=== PATIENT | male | born 1980 | race African-American/Black ===

== ENCOUNTER 2017-05-03 15:37 | Emergency (ER) | payer SELFPAY ==
[2017-05-03] MEDS ORDERED: METHYLPREDNISOLONE INJ 125 MG/2 ML SDV IV ONE (15:45)
[2017-05-03] MEDS ORDERED: FAMOTIDINE INJ/PF 20 MG/2 ML SDV IV ONE (15:45)
[2017-05-03] MEDS ORDERED: NORMAL SALINE 1000 ML 1,000 ML IV PRN (15:45)
[2017-05-03] MEDS ORDERED: EPINEPHRINE INJ/PF 1 MG/1 ML AMPULE SUBCUT ONE (15:46)
[2017-05-03] MEDS ORDERED: DIPHENHYDRAMINE HCL 50 MG/ML VIAL IV ONE (15:46)
[2017-05-03] MEDS ORDERED: METHYLPREDNISOLONE INJ 125 MG/2 ML SDV ONE (15:48)
--- NOTE | 2017-05-03 15:48 | ER Document Report ---
ED Medical Screen (RME) - General Chief Complaint: Allergic Reaction Stated Complaint: ALLERGIC REACTION/WASP STING Time Seen by Provider: 05/03/17 15:45 Mode of Arrival: Ambulatory Information source: Patient TRAVEL OUTSIDE OF THE [place] IN LAST 30 DAYS: No - HPI Patient complains to provider of: Patient to yellow wasp sting Onset: This afternoon Notes: 05/03/17 15:47 Patient is a 37-year-old male who presents to the emergency room for complaints of allergic reaction to yellow wasp sting, wasp sting occurred approximately 2 hours ago, he has developed facial swelling, difficulty swallowing with sensation of throat closing, no history of similar reaction previously - Related Data Allergies/Adverse Reactions: meperidine HCl [From Demerol] Allergy (Verified 05/03/17 15:41) Past Medical History - Past Medical History Cardiac Medical History: Reports: Hx Hypertension Pulmonary Medical History: Reports: Hx Asthma Renal/ Medical History: Denies: Hx Peritoneal Dialysis Past Surgical History: Reports: Hx Oral Surgery - Immunizations Immunizations up to date: Yes Hx Diphtheria, Pertussis, Tetanus Vaccination: Yes Physical Exam - Vital signs Vitals: Temp Pulse Resp BP Pulse Ox 99.4 F 110 H 20 179/116 H 100 05/03/17 15:41 05/03/17 15:41 05/03/17 15:41 05/03/17 15:41 05/03/17 15:41 Course - Vital Signs Vital signs: Temp Pulse Resp BP Pulse Ox 99.4 F 110 H 20 179/116 H 100 05/03/17 15:41 05/03/17 15:41 05/03/17 15:41 05/03/17 15:41 05/03/17 15:41
[2017-05-03] MEDS ORDERED: DIPHENHYDRAMINE HCL 50 MG/ML VIAL ONE (15:49)
[2017-05-03] MEDS ORDERED: EPINEPHRINE INJ/PF 1 MG/1 ML AMPULE IM ONE (15:50)
--- NOTE | 2017-05-03 15:51 | ER Document Report ---
ED Allergic Reaction - General Mode of Arrival: Ambulatory Information source: Patient TRAVEL OUTSIDE OF THE [place] IN LAST 30 DAYS: No - HPI Onset: This afternoon - Refer to HPI notes Swelling: Face Similar symptoms previously: No Recently seen / treated by doctor: No <KEVAN CORTES - Last Filed: 05/03/17 17:08> <NICKMARILU ANETA - Last Filed: 05/03/17 19:44> - General Chief Complaint: Allergic Reaction Stated Complaint: ALLERGIC REACTION/WASP STING Time Seen by Provider: 05/03/17 15:45 Notes: Patient is a 37 year old male presenting to the emergency department for an allergic reaction to a wasp sting. Patient states he was stung at 14:00 on his left upper extremity. Patient states he took 2 Benadryl and 2 Atarax. Patient complains of some facial swelling and difficulty swallowing. Patient denies any history of a previous reaction. Patient denies any difficulty taking deep breaths. Patient has a history of hypertension and is supposed to be taking lisinopril but states he has not been taking it. Patient states he had asthma as a child. Patient is allergic to meperidine HCl. (KEVAN CORTES) - Related Data Allergies/Adverse Reactions: meperidine HCl [From Demerol] Allergy (Verified 05/03/17 15:41) Past Medical History - General Information source: Patient - Social History Smoking Status: Never Smoker Cigarette use (# per day): No Chew tobacco use (# tins/day): No Smoking Education Provided: No Frequency of alcohol use: None Drug Abuse: None Family History: None Patient has suicidal ideation: No Patient has homicidal ideation: No - Past Medical History Cardiac Medical History: Reports: Hx Hypertension - lisinopril Pulmonary Medical History: Reports: Hx Asthma - as a child Past Surgical History: Reports: Hx Oral Surgery - Immunizations Immunizations up to date: Yes Hx Diphtheria, Pertussis, Tetanus Vaccination: Yes <KEVAN CORTES - Last Filed: 05/03/17 17:08> Review of Systems - Review of Systems Constitutional: No symptoms reported EENT: See HPI Cardiovascular: No symptoms reported Respiratory: No symptoms reported Gastrointestinal: No symptoms reported Genitourinary: No symptoms reported Male Genitourinary: No symptoms reported Musculoskeletal: See HPI Skin: See HPI Hematologic/Lymphatic: No symptoms reported Neurological/Psychological: No symptoms reported -: Yes All other systems reviewed and negative <KEVAN CORTES - Last Filed: 05/03/17 17:08> Physical Exam - Vital signs Interpretation: Hypertensive - General General appearance: Alert In distress: Mild - HEENT Head: Normocephalic, Atraumatic Eyes: Normal Pupils: PERRL Pharynx: Erythema - Erythema to the oropharynx <KEVAN CORTES - Last Filed: 05/03/17 17:08> - Vital signs Interpretation: Tachycardic - HEENT Eyes: Periorbital edema Pharynx: Uvular edema - Respiratory Respiratory status: No respiratory distress Chest status: Nontender Breath sounds: Normal Chest palpation: Normal - Cardiovascular Rhythm: Regular Heart sounds: Normal auscultation Murmur: No - Abdominal Inspection: Normal Distension: No distension Bowel sounds: Normal Tenderness: Nontender Organomegaly: No organomegaly - Back Back: Normal, Nontender - Extremities General upper extremity: Tender - Right medial elbow where envenomation was, Normal color, Normal ROM, Normal temperature General lower extremity: Nontender, Normal color, Normal ROM, Normal temperature , Normal weight bearing. No: Monique's sign - Neurological Neuro grossly intact: Yes Cognition: Normal Orientation: AAOx4 [place] Coma Scale Eye Opening: Spontaneous [place] Coma Scale Verbal: Oriented [place] Coma Scale Motor: Obeys Commands Carmen Coma Scale Total: 15 Speech: Normal Motor strength normal: LUE, RUE, LLE, RLE Sensory: Normal - Psychological Associated symptoms: Normal affect, Normal mood - Skin Skin Temperature: Warm Skin Moisture: Dry Character of irregularity: Urticarial - Diffuse <MARILU ROMERO - Last Filed: 05/03/17 19:44> - Vital signs Vitals: Temp Pulse Resp BP Pulse Ox 99.4 F 110 H 20 179/116 H 100 05/03/17 15:41 05/03/17 15:41 05/03/17 15:41 05/03/17 15:41 05/03/17 15:41 Course <KEVAN CORTES - Last Filed: 05/03/17 17:08> <MARILU ROMERO - Last Filed: 05/03/17 19:44> - Re-evaluation Re-evalutation: 05/03/17 17:06 Re-evaluated patient at this time. Patient states he feels better and his oropharynx is returning to baseline. All questions were answered. (KEVAN CORTES) 05/03/17 18:22 Patient improved at this time. no swelling of oropharynx. Urticaria is improved. No respiratory distress. Patient is not hypotensive. Patient has been on lisinopril in the past for high blood pressure. I do not think it is a good idea to refill his lisinopril currently with his recent anaphylaxis. Patient does not want to take that or really any other blood pressure medication anyway. He states that his blood pressure has been fine at home. Stable for discharge. Return if any worsening or concerning symptoms. Follow- up with PMD. (MARILU ROMERO) - Vital Signs Vital signs: Temp Pulse Resp BP Pulse Ox 99.4 F 110 H 22 H 160/105 H 98 05/03/17 15:41 05/03/17 15:41 05/03/17 18:05 05/03/17 18:05 05/03/17 18:05 Critical Care Note - Critical Care Note Total time excluding time spent on procedures (mins): 35 - Evaluation and management of anaphylaxis, potential airway compromise, multiple re-evaluations , counseling of patient <MARILU ROMERO - Last Filed: 05/03/17 19:44> Discharge <KEAVN CORTES - Last Filed: 05/03/17 17:08> <MARILU ROMERO - Last Filed: 05/03/17 19:44> - Discharge Clinical Impression: Wasp sting-induced anaphylaxis Qualifiers: Encounter type: initial encounter Injury intent: accidental or unintentional Qualified Code(s): T63.461A - Toxic effect of venom of wasps, accidental ( unintentional), initial encounter Condition: Stable Disposition: HOME, SELF-CARE Instructions: Swollen Insect Bite or Sting ([facility]), Acute Allergic Reaction ([facility]) Additional Instructions: Please take Claritin in the morning and Benadryl throughout the day as needed for itching. Please continue to take famotidine. Prescriptions: Epinephrine [Epipen 2-Ayad] 0.3 mg IM ONCE #1 ml Famotidine 20 mg PO BID #30 tablet Prednisone 40 mg PO DAILY #6 tablet Forms: Return to Work Scribe Attestation: 05/03/17 19:44 I personally performed the services described in the documentation, reviewed and edited the documentation which was dictated to the scribe in my presence, and it accurately records my words and actions. (MARILU ROMERO) Scribe Documentation - Scribe Written by Scribe:: Erika Reese 05/03/17 16:02 acting as scribe for :: Nick <KEVAN CORTES - Last Filed: 05/03/17 17:08>
[2017-05-03 18:15] VITALS: BP 160/105
== END 2017-05-03 18:30 | disposition home or self-care (01) ==
LOC: ER 15:37
DX: T63.461A Toxic effect of venom of wasps, accidental (unintentional), initial encounter (principal)
CPT/HCPCS: 99291; 96361; 96374; 96375; J1200; J0171; J2930; J7030; S0028

== ENCOUNTER 2018-05-08 03:42 | Emergency (ER) | payer SELFPAY ==
[2018-05-08 03:49] VITALS: BP 193/118
[2018-05-08] MEDS ORDERED: LOSARTAN POTASSIUM 50 MG TABLET PO ONE (04:12)
[2018-05-08] MEDS ORDERED: HYDROCHLOROTHIAZIDE 25 MG TABLET PO ONE (04:12)
--- NOTE | 2018-05-08 04:13 | ER Document Report ---
ED GI/ - General Chief Complaint: Nausea/Vomiting/Diarrhea Stated Complaint: NAUSEA Time Seen by Provider: 05/08/18 04:03 Notes: Patient is a 38-year-old male that comes emergency department for chief complaint of nausea, vomiting, diarrhea. Symptoms started 2 days ago, he states he vomited once, he has had about 20 episodes of diarrhea, nonbloody. He denies fever or chills. He tried taking Imodium and Pepto-Bismol without any improvement. He denies current nausea. No obvious sick contacts, no recent travel or antibiotics. Supposed to be on losartan 100 mg and HCTZ 25-50 mg daily but he is out of the medications and does not have any upcoming close follow-up at the moment. TRAVEL OUTSIDE OF THE [place] IN LAST 30 DAYS: No - Related Data Allergies/Adverse Reactions: meperidine HCl [From Demerol] Allergy (Verified 05/03/17 15:41) Past Medical History - General Information source: Patient - Social History Smoking Status: Never Smoker Drug Abuse: None Lives with: Alone Family History: None - Past Medical History Cardiac Medical History: Reports: Hx Hypertension - lisinopril Pulmonary Medical History: Reports: Hx Asthma - as a child Renal/ Medical History: Denies: Hx Peritoneal Dialysis Past Surgical History: Reports: Hx Oral Surgery - Immunizations Immunizations up to date: Yes Hx Diphtheria, Pertussis, Tetanus Vaccination: Yes Review of Systems - Review of Systems Constitutional: No symptoms reported EENT: No symptoms reported Cardiovascular: No symptoms reported Respiratory: No symptoms reported Gastrointestinal: See HPI Genitourinary: No symptoms reported Male Genitourinary: No symptoms reported Musculoskeletal: No symptoms reported Skin: No symptoms reported Hematologic/Lymphatic: No symptoms reported Neurological/Psychological: No symptoms reported Physical Exam - Vital signs Vitals: Temp Pulse Resp BP Pulse Ox 98.8 F 91 18 193/118 H 96 05/08/18 03:48 05/08/18 03:48 05/08/18 03:48 05/08/18 03:48 05/08/18 03:48 - Notes Notes: GENERAL: Alert, interacts well. No acute distress. HEAD: Normocephalic, atraumatic. EYES: Pupils equal, round, and reactive to light. Extraocular movements intact. ENT: Oral mucosa moist, tongue midline. NECK: Full range of motion. Supple. Trachea midline. LUNGS: Clear to auscultation bilaterally, no wheezes, rales, or rhonchi. No respiratory distress. HEART: Regular rate and rhythm. No murmur ABDOMEN: Soft, non-tender. Non-distended. Bowel sounds present in all 4 quadrants. EXTREMITIES: Moves all 4 extremities spontaneously. No edema, normal radial and dorsalis pedis pulses bilaterally. No cyanosis. BACK: no cervical, thoracic, lumbar midline tenderness. No saddle anesthesia, normal distal neurovascular exam. NEUROLOGICAL: Alert and oriented x3. Normal speech. [cranial nerves II through XII grossly intact]. PSYCH: Normal affect, normal mood. SKIN: Warm, dry, normal turgor. No rashes or lesions noted. Course - Re-evaluation Re-evalutation: CMP is unremarkable including electrolytes. No fever or tachycardia. Patient' s abdominal exam is benign with no guarding or tenderness at all. Patient able to provide diarrhea because of frequency of diarrhea. No white blood cells, negative C. difficile, stool culture and Gram stain pending. Suspect this is viral. Provided with symptom management, patient blood pressure is very elevated, he is out of his blood pressure medications, he denies headache, chest pain, or urinary retention, providing with refills, initial doses, patient has follow-up for this. Discussed workup, follow-up, return precautions , patient states understanding and agreement. - Vital Signs Vital signs: Temp Pulse Resp BP Pulse Ox 98.8 F 91 18 193/118 H 96 05/08/18 03:48 05/08/18 03:48 05/08/18 03:48 05/08/18 03:48 05/08/18 03:48 - Laboratory Result Diagrams: 05/08/18 04:18 Discharge - Discharge Clinical Impression: Nausea vomiting and diarrhea Condition: Stable Additional Instructions: Your examination including laboratory workup is most suggestive of viral cause of your symptoms. You have been provided with medications to take for the discomfort here, use only if needed, continue hydration, take the Phenergan if needed for nausea. This should resolve on its own with time. Follow-up with your primary provider for additional evaluation and management of your blood pressure. Return for any concerning or worsening symptoms including vomiting, severe abdominal pain, spiking fever, or any other concerning or worsening symptoms. Prescriptions: Hydrochlorothiazide [Hydrodiuril 25 mg Tablet] 25 mg PO QAM #30 tablet Losartan Potassium 100 mg PO DAILY #30 tablet Promethazine HCl [Phenergan 25 mg Tablet] 1 - 2 tab PO Q6H PRN #15 tablet PRN Reason: Forms: Return to Work, Elevated Blood Pressure
[2018-05-08 04:45] LABS: ALANINE AMINOTRANSFERASE 27 U/L (21-72); ALBUMIN 3.9 g/dL (3.5-5.0); ALKALINE PHOSPHATASE 70 U/L (38-126); ANION GAP 10 (5-19); ASPARTATE AMINO TRANSFERASE 19 U/L (17-59); BILIRUBIN,DIRECT 0.3 mg/dL (0.0-0.4); BILIRUBIN,TOTAL 0.4 mg/dL (0.2-1.3); BLOOD UREA NITROGEN 10 mg/dL (7-20); CALCIUM 9.6 mg/dL (8.4-10.2); CARBON DIOXIDE 27 mmol/L (22-30); CHLORIDE 107 mmol/L (98-107); GLUCOSE 99 mg/dL (75-110); POTASSIUM 3.6 mmol/L (3.6-5.0); TOTAL PROTEIN 6.6 g/dL (6.3-8.2)
[2018-05-08] MEDS ORDERED: HYDROCODONE/ACETAMINOPHEN 5-325 MG (6 TAB/ER DISP) PO PRN (06:24)
== END 2018-05-08 06:40 | disposition home or self-care (01) ==
LOC: ER 03:42
DX: R11.2 Nausea with vomiting, unspecified (principal); R19.7 Diarrhea, unspecified; I10 Essential (primary) hypertension; T46.5X6A Underdosing of other antihypertensive drugs, initial encounter; T50.2X6A Underdosing of carbonic-anhydrase inhibitors, benzothiadiazides and other diuretics, initial encounter; Z91.128 Patient's intentional underdosing of medication regimen for other reason; Z88.5 Allergy status to narcotic agent
CPT/HCPCS: 36415; 80053; 87045; 87205; 87493; 89055; 99284

== ENCOUNTER 2018-10-11 09:55 | Emergency (ER) | payer SELFPAY ==
[2018-10-11 10:02] VITALS: BP 193/120
--- NOTE | 2018-10-11 10:15 | ER Document Report ---
ED ENT - General Mode of Arrival: Ambulatory Information source: Patient TRAVEL OUTSIDE OF THE [place] IN LAST 30 DAYS: No - General Chief Complaint: Drainage from Ear Stated Complaint: LEFT EAR PAIN Time Seen by Provider: 10/11/18 10:08 Notes: 38-year-old male who presents to the emergency department today with complaints of "eardrum rupture". Patient states that last night at around 2000 he had a slight earache on the left side, he took NyQuil and went to sleep. Patient states this morning around 0600 he had a pain in his left ear and noticed some drainage coming out of it. Patient states he had a similar episode in 2007 which was a ruptured eardrum at that time. Patient denies any trauma to the ear , Q-tip usage, nasal congestion, or throat pain. 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 (BENJA RUSSELL) - Related Data Allergies/Adverse Reactions: meperidine HCl [From Demerol] Allergy (Verified 05/03/17 15:41) Past Medical History - General Information source: Patient - Social History Smoking Status: Current Every Day Smoker Cigarette use (# per day): Yes Chew tobacco use (# tins/day): No Frequency of alcohol use: Occasional Drug Abuse: None Family History: None Patient has suicidal ideation: No Patient has homicidal ideation: No - Past Medical History Cardiac Medical History: Reports: Hx Hypertension - lisinopril Pulmonary Medical History: Reports: Hx Asthma - as a child Renal/ Medical History: Denies: Hx Peritoneal Dialysis Past Surgical History: Reports: Hx Oral Surgery - Immunizations Immunizations up to date: Yes Hx Diphtheria, Pertussis, Tetanus Vaccination: Yes Review of Systems - Review of Systems Constitutional: No symptoms reported EENT: See HPI, Other - left ear pain, possible TM rupture. denies: Nose congestion, Throat pain Cardiovascular: No symptoms reported Respiratory: No symptoms reported Gastrointestinal: No symptoms reported Genitourinary: No symptoms reported Male Genitourinary: No symptoms reported Musculoskeletal: No symptoms reported Skin: No symptoms reported Hematologic/Lymphatic: No symptoms reported Neurological/Psychological: No symptoms reported -: Yes All other systems reviewed and negative Physical Exam - Vital signs Vitals: Temp Pulse Resp BP Pulse Ox 99.8 F 98 16 193/120 H 100 10/11/18 10:00 10/11/18 10:00 10/11/18 10:00 10/11/18 10:00 10/11/18 10:00 - Notes Notes: PHYSICAL EXAM GENERAL: Alert, interacts well. No acute distress. HEAD: Normocephalic, atraumatic. EYES: Pupils equal, round, and reactive to light. Extraocular movements intact. ENT: Oral mucosa moist, tongue midline. Right TM is normal in appearance. Left TM has large rupture, trace discharge, no blood, no erythema of the external auditory canal. NECK: Full range of motion. Supple. Trachea midline. LUNGS: Clear to auscultation bilaterally, no wheezes, rales, or rhonchi. No respiratory distress. HEART: Regular rate and rhythm. No murmurs, gallops, or rubs. EXTREMITIES: Moves all 4 extremities spontaneously. NEUROLOGICAL: Alert and oriented x3. Normal speech. PSYCH: Normal affect, normal mood. SKIN: Warm, dry, normal turgor. No rashes or lesions noted. (BENJA RUSSELL) Course - Re-evaluation Re-evalutation: 10/11/18 11:29 Ruptured TM presumably from otitis media although there is no purulent drainage at this time, patient given ciprofloxacin eyedrops. Prescription written as well. Discharged home. (ANA RODRIGUEZ) - Vital Signs Vital signs: Temp Pulse Resp BP Pulse Ox 99.8 F 98 16 193/120 H 100 10/11/18 10:00 10/11/18 10:00 10/11/18 10:00 10/11/18 10:00 10/11/18 10:00 Discharge - Discharge Clinical Impression: Otitis media with rupture of tympanic membrane Qualifiers: Laterality: left Qualified Code(s): H66.92 - Otitis media, unspecified, left ear Condition: Stable Disposition: HOME, SELF-CARE Additional Instructions: Your eardrum is ruptured. This likely came from an infection. Do not wet your ears in any way. When showering or bathing you should put in clean earplugs or a cotton ball to keep them dry. You should place 4 drops into your left ear 3 times a day for the next 7 days. Please return should your pain worsen, you become dizzy, you develop fevers or you have any new or concerning symptoms. Please follow-up with an ear nose and throat doctor in about 2 weeks to have your ear recheck to make sure it is healed. Prescriptions: Ciprofloxacin HCl/Dexameth [Ciprodex Otic Suspension 7.5 ml Bottle] 4 drop TID #1 bottle Referrals: MARINO SKINNER MD [ACTIVE STAFF] - Follow up as needed Scribe Attestation: 10/11/18 11:30 I personally performed the services described in the documentation, reviewed and edited the documentation which was dictated to the scribe in my presence, and it accurately records my words and actions. (ANA RODRIGUEZ) Scribe Documentation - Scribe Written by Graciee:: Erika Wei, 10/11/2018 1100 acting as scribe for :: Liyah
[2018-10-11] MEDS ORDERED: CIPROFLOXACIN HCL 0.3% OPH SOLN 2.5 ML OD ONE (10:17)
== END 2018-10-11 10:26 | disposition home or self-care (01) ==
LOC: ER 09:55
DX: H66.92 Otitis media, unspecified, left ear (principal); H92.12 Otorrhea, left ear; H92.02 Otalgia, left ear; F17.210 Nicotine dependence, cigarettes, uncomplicated; I10 Essential (primary) hypertension; J45.909 Unspecified asthma, uncomplicated; Z79.899 Other long term (current) drug therapy
CPT/HCPCS: 99282; J3490

== ENCOUNTER 2019-12-22 15:51 | Emergency (ER) | payer SELFPAY ==
[2019-12-22] MEDS ORDERED: HYDROCHLOROTHIAZIDE 25 MG TABLET PO ONE (16:40)
[2019-12-22] MEDS ORDERED: LOSARTAN POTASSIUM 50 MG TABLET PO ONE (16:40)
[2019-12-22] MEDS ORDERED: CLONIDINE HCL 0.2 MG TABLET PO ONE (16:40)
--- NOTE | 2019-12-22 16:46 | ER Document Report ---
ED Medical Screen (RME) - General Chief Complaint: Flu Symptoms Stated Complaint: FLU SYMPTOMS Time Seen by Provider: 12/22/19 16:34 Mode of Arrival: Ambulatory Information source: Patient Notes: 39-year-old male presented to ED for flulike symptoms. When he was here his blood pressure was 230/128. He states he has not had any of his blood pressure medicine in 6 months. He is on losartan 100 mg and hydrochlorothiazide 25 mg. I have talked with Dr. sandhu who is come and talk with the patient. He stated to give the patient 0.2 mg of clonidine, losartan 100 mg, and hydrochlorothiazide 25 mg p.o. now and he can will come reassess the patient and discharge him. He also stated to get the flu test. The flu test has been completed and is being sent to the lab. I have greeted and performed a rapid initial assessment of this patient. A comprehensive ED assessment and evaluation of the patient, analysis of test results and completion of medical decision making process will be conducted by an additional ED providers. TRAVEL OUTSIDE OF THE [place] IN LAST 30 DAYS: No - Related Data Allergies/Adverse Reactions: meperidine HCl [From Demerol] Allergy (Verified 05/03/17 15:41) yellow jackets Allergy (Uncoded 12/22/19 16:34) Past Medical History - Social History Frequency of alcohol use: Social Drug Abuse: None - Past Medical History Cardiac Medical History: Reports: Hx Hypertension - lisinopril Pulmonary Medical History: Reports: Hx Asthma - as a child Renal/ Medical History: Denies: Hx Peritoneal Dialysis Past Surgical History: Reports: Hx Oral Surgery - Immunizations Immunizations up to date: Yes Hx Diphtheria, Pertussis, Tetanus Vaccination: Yes Physical Exam - Vital signs Vitals: Temp Pulse Resp BP Pulse Ox 98.6 F 86 16 214/128 H 97 12/22/19 16:28 12/22/19 16:28 12/22/19 16:28 12/22/19 16:28 12/22/19 16:28 Course - Vital Signs Vital signs: Temp Pulse Resp BP Pulse Ox 98.6 F 86 16 220/128 H 97 12/22/19 16:28 12/22/19 16:28 12/22/19 16:28 12/22/19 16:43 12/22/19 16:28
[2019-12-22 17:32] LABS: A TYPE INFLUENZA AG NEGATIVE (NEGATIVE); B INFLUENZA AG NEGATIVE (NEGATIVE)
--- NOTE | 2019-12-22 17:40 | ER Document Report ---
ED General - General Chief Complaint: Flu Symptoms Stated Complaint: FLU SYMPTOMS Time Seen by Provider: 12/22/19 16:34 Mode of Arrival: Ambulatory TRAVEL OUTSIDE OF THE [place] IN LAST 30 DAYS: No - HPI Onset: Just prior to arrival Onset/Duration: Sudden, Persistent Quality of pain: No pain Severity: None Pain Level: Denies Associated symptoms: Headache Exacerbated by: Denies Similar symptoms previously: Yes Recently seen / treated by doctor: Yes - Related Data Allergies/Adverse Reactions: meperidine HCl [From Demerol] Allergy (Verified 05/03/17 15:41) yellow jackets Allergy (Uncoded 12/22/19 16:34) Past Medical History - General Information source: Patient - Social History Smoking Status: Current Every Day Smoker Cigarette use (# per day): Yes Chew tobacco use (# tins/day): No Smoking Education Provided: Yes Frequency of alcohol use: Social Drug Abuse: None Lives with: Alone Family History: None Patient has suicidal ideation: No Patient has homicidal ideation: No - Past Medical History Cardiac Medical History: Reports: Hx Hypertension - lisinopril Pulmonary Medical History: Reports: Hx Asthma - as a child Renal/ Medical History: Denies: Hx Peritoneal Dialysis Past Surgical History: Reports: Hx Oral Surgery - Immunizations Immunizations up to date: Yes Hx Diphtheria, Pertussis, Tetanus Vaccination: Yes Review of Systems - Review of Systems Constitutional: No symptoms reported EENT: No symptoms reported, Sinus pressure, Other - Rhinorrhea Cardiovascular: No symptoms reported Respiratory: No symptoms reported Gastrointestinal: No symptoms reported Genitourinary: No symptoms reported Male Genitourinary: No symptoms reported Musculoskeletal: No symptoms reported Skin: No symptoms reported Hematologic/Lymphatic: No symptoms reported Neurological/Psychological: No symptoms reported Physical Exam - Vital signs Vitals: Temp Pulse Resp BP Pulse Ox 98.6 F 86 16 214/128 H 97 12/22/19 16:28 12/22/19 16:28 12/22/19 16:28 12/22/19 16:28 12/22/19 16:28 Interpretation: Hypertensive - HEENT Head: Normocephalic Eyes: Normal Conjunctiva: Normal Cornea: Normal Extraocular movements intact: Yes Eyelashes: Normal Pupils: PERRL Ears: Normal Tympanic membrane: Normal Sinus: Other - Nasal congestion Nasal: Clear rhinorrhea Pharynx: Normal Neck: Normal - Respiratory Respiratory status: No respiratory distress Chest status: Nontender Breath sounds: Normal Chest palpation: Normal - Cardiovascular Rhythm: Regular Heart sounds: Normal auscultation Murmur: No Friction rub: No Johnathon's crunch: No - Abdominal Inspection: Normal Distension: No distension Bowel sounds: Normal Tenderness: Nontender Organomegaly: No organomegaly - Back Back: Normal - Extremities General upper extremity: Normal inspection General lower extremity: Normal inspection - Neurological Neuro grossly intact: Yes Cognition: Normal Orientation: AAOx4 [place] Coma Scale Eye Opening: Spontaneous [place] Coma Scale Verbal: Oriented [place] Coma Scale Motor: Obeys Commands [place] Coma Scale Total: 15 Speech: Normal Cranial nerves: Normal Course - Vital Signs Vital signs: Temp Pulse Resp BP Pulse Ox 98.6 F 86 16 220/128 H 97 12/22/19 16:28 12/22/19 16:28 12/22/19 16:28 12/22/19 16:43 12/22/19 16:28 Critical Care Note - Critical Care Note Total time excluding time spent on procedures (mins): 90 Discharge - Discharge Clinical Impression: Influenza-like illness, Medication refill Hypertension Qualifiers: Hypertension type: unspecified Qualified Code(s): I10 - Essential (primary) hypertension Disposition: HOME, SELF-CARE Additional Instructions: Follow-up with your personal doctor return to ER as needed take medicines as directed encourage fluids; take blood pressure medicines daily and also get your blood pressure checked daily and avoid immunocompromised people who have not had the flu or flu shot. Prescriptions: Hydroxyzine HCl [Atarax 10 mg Tablet] 10 mg PO BID #15 tablet Losartan/Hydrochlorothiazide [Losartan-Hctz 100-25 mg Tab] 1 each PO DAILY #30 tablet Azithromycin [Zithromax 250 mg Tablet] 250 mg PO ASDIR PRN #6 tablet PRN Reason: Forms: Return to Work
[2019-12-22 17:56] VITALS: BP 220/130
== END 2019-12-22 18:05 | disposition home or self-care (01) ==
LOC: ER 15:51
DX: Z76.0 Encounter for issue of repeat prescription (principal); J11.1 Influenza due to unidentified influenza virus with other respiratory manifestations; I10 Essential (primary) hypertension; R51 Headache; J34.89 Other specified disorders of nose and nasal sinuses; Z79.899 Other long term (current) drug therapy; F17.210 Nicotine dependence, cigarettes, uncomplicated; J45.909 Unspecified asthma, uncomplicated
CPT/HCPCS: 87804; 99284

== ENCOUNTER 2020-05-13 08:19 | Emergency (ER) | payer SELFPAY ==
[2020-05-13 09:51] VITALS: BP 215/118
== END 2020-05-13 11:08 | disposition left against medical advice (07) ==
LOC: ER 08:19
DX: Z53.21 Procedure and treatment not carried out due to patient leaving prior to being seen by health care provider (principal); M79.606 Pain in leg, unspecified

== ENCOUNTER 2020-07-21 07:55 | Emergency (ER) | payer SELFPAY ==
[2020-07-21] MEDS ORDERED: LIDOCAINE 1% INJ-PF (10 MG/ML) 30 ML SDV INJ ONE (13:15)
--- NOTE | 2020-07-21 13:57 | ER Document Report ---
Entered by MARIJA HOWARD SCRIBE 07/21/20 1202 Acting as scribe for:DARLEEN MCKEE MD ED Wound - General Chief Complaint: Laceration Stated Complaint: LACERATION/RIGHT FOURTH DIGIT Time Seen by Provider: 07/21/20 11:47 Mode of Arrival: Ambulatory Information source: Patient Notes: This 40 year old male patient presents to the ED today with complaints of laceration to his right fourth digit that occurred around 1830 yesterday evening. Patient states that he was sharpening kitchen knives at home and was in the process of putting them away when one of the knives grazed his finger. He reports that he cleaned and dressed the wound immediately, but noticed more bleeding this morning, so he decided to come to the ED for evaluation. Last tetanus is unknown. Patient is right hand dominant. TRAVEL OUTSIDE OF THE [place] IN LAST 30 DAYS: No - Related Data Allergies/Adverse Reactions: meperidine HCl [From Demerol] Allergy (Verified 05/13/20 08:33) yellow jackets Allergy (Uncoded 05/13/20 08:33) Past Medical History - General Information source: Patient, [facility] Records - Social History Smoking Status: Current Every Day Smoker Chew tobacco use (# tins/day): No Smoking Education Provided: No Frequency of alcohol use: Occasional Drug Abuse: None Lives with: Family Family History: Reviewed & Not Pertinent Patient has suicidal ideation: No Patient has homicidal ideation: No - Past Medical History Cardiac Medical History: Reports: Hx Hypertension - no meds Pulmonary Medical History: Reports: Hx Asthma - as a child Skin Medical History: Reports Hx Eczema Past Surgical History: Reports: Hx Oral Surgery - Immunizations Immunizations up to date: Yes Hx Diphtheria, Pertussis, Tetanus Vaccination: Yes Review of Systems - Review of Systems Constitutional: No symptoms reported EENT: No symptoms reported Cardiovascular: No symptoms reported Respiratory: No symptoms reported Gastrointestinal: No symptoms reported Genitourinary: No symptoms reported Male Genitourinary: No symptoms reported Musculoskeletal: See HPI Skin: See HPI Hematologic/Lymphatic: No symptoms reported Neurological/Psychological: No symptoms reported -: Yes All other systems reviewed and negative Physical Exam - Vital signs Vitals: Temp Pulse Resp BP Pulse Ox 98.3 F 79 18 221/123 H 99 07/21/20 07:59 07/21/20 07:59 07/21/20 07:59 07/21/20 07:59 07/21/20 07:59 Interpretation: Hypertensive - General General appearance: Alert In distress: None - HEENT Head: Normocephalic, Atraumatic Eyes: Normal Pupils: PERRL - Respiratory Respiratory status: No respiratory distress Chest status: Nontender Breath sounds: Normal Chest palpation: Normal - Cardiovascular Rhythm: Regular Heart sounds: Normal auscultation Murmur: No Friction rub: No Gallop: None auscultated - Abdominal Inspection: Normal Distension: No distension Bowel sounds: Normal Tenderness: Nontender - Abdomen soft Organomegaly: No organomegaly - Back Back: Normal, Nontender - Extremities General lower extremity: Normal inspection Hand: Laceration - Right fourth finger, Other - Distal sensation, pulse, and motor intact - Neurological Neuro grossly intact: Yes Orientation: AAOx4 Carmen Coma Scale Eye Opening: Spontaneous Carmen Coma Scale Verbal: Oriented Carmen Coma Scale Motor: Obeys Commands Carmen Coma Scale Total: 15 - Psychological Associated symptoms: Normal affect, Normal mood - Skin Skin irregularity: other - 4.5 cm avulsed skin flap noted to dorsal surface of the proximal right 4th digit. No active bleeding Course - Vital Signs Vital signs: Temp Pulse Resp BP Pulse Ox 98.3 F 79 18 221/123 H 99 07/21/20 07:59 07/21/20 07:59 07/21/20 07:59 07/21/20 07:59 07/21/20 07:59 Procedures - Laceration/Wound Repair Right Dorsal Finger 4th digit Time completed: 14:29 Wound length (cm): 4.5 Wound's Depth, Shape: Flap Laceration pre-procedure: Sterile PPE donned, Chloraprep applied, Sterile drapes applied, Shur-Clens applied Anesthetic type: 1% Lidocaine Volume Anesthetic (mLs): 3 Wound explored: Clean, No foreign body removed Irrigated w/ Saline (mLs): 7 Wound Debrided: Minimal Wound Repaired With: Sutures Suture Size/Type: Vicryl, 4:0 Number of Sutures: 5 Layer Closure?: No Post-procedure wound care: Sterile dressing applied, Splint applied Post-procedure NV exam normal: Yes Complications: No Discharge - Discharge Clinical Impression: Accelerated hypertension, Finger laceration Condition: Stable Disposition: HOME, SELF-CARE Instructions: Laceration Care ([facility]), Prophylactic Antibiotic ([facility]), Tetanus Immunization Given ([facility]) Additional Instructions: Laceration Care Your laceration has been sutured to keep the skin edges aligned during healing. The time of suture removal depends on the nature and location of your cut. Please follow the care instructions the doctor has outlined for you and return for further care, according to the schedule you've been given. Keep the wound and dressing clean. Unless you were told otherwise, you may shower daily, blotting the wound dry with a clean, unused towel. At other times, If the dressing gets wet or blood soaked, remove it and blot the wound dry, then reapply a new dressing. Unless you were instructed otherwise, dressings should be changed at least daily. If any signs of infection occur (swelling, redness, increasing tenderness, red streaks, tender lumps in the armpit or groin above the laceration, or fever), see the doctor immediately. You should wear your splint until told otherwise. For the next 2 days keep wound site clean and dry and maintain splint in place. Only if necessary JULI asking you to remove the splint if you need to change the dressing for any reason. Return to the emergency room for a wound check in 2 days and you will will be given further instructions at that time. Usually sutures remain in place between 7 to 10 days. Prescriptions: Cephalexin Monohydrate [Keflex 500 mg Capsule] 500 mg PO BID 7 Days #14 capsule Losartan/Hydrochlorothiazide [Losartan-Hctz 100-25 mg Tab] 1 each PO DAILY #30 tablet Forms: Elevated Blood Pressure I personally performed the services described in the documentation, reviewed and edited the documentation which was dictated to the scribe in my presence, and it accurately records my words and actions.
[2020-07-21] MEDS ORDERED: DIPH/PERTUSS(ACELL)/TETANUS VAC/PF 0.5 ML SYR (>=10YO) IM ONE (13:59)
[2020-07-21 14:57] VITALS: BP 218/137
== END 2020-07-21 14:58 | disposition home or self-care (01) ==
LOC: ER 07:55
DX: S91.114A Laceration without foreign body of right lesser toe(s) without damage to nail, initial encounter (principal); S61.214A Laceration without foreign body of right ring finger without damage to nail, initial encounter; W26.0XXA Contact with knife, initial encounter; Y93.89 Activity, other specified; Y92.009 Unspecified place in unspecified non-institutional (private) residence as the place of occurrence of the external cause; I10 Essential (primary) hypertension; Z23 Encounter for immunization; F17.200 Nicotine dependence, unspecified, uncomplicated; Z88.6 Allergy status to analgesic agent; Z88.5 Allergy status to narcotic agent; Z91.038 Other insect allergy status
CPT/HCPCS: 90471; 90715; 99283

== ENCOUNTER 2020-09-28 11:36 | Emergency (ER) | payer SELFPAY ==
--- NOTE | 2020-09-28 12:51 | ER Document Report ---
ED Medical Screen (RME) - General Chief Complaint: Blood Pressure Problem Stated Complaint: BLOOD PRESSURE ISSUES Time Seen by Provider: 09/28/20 12:48 Mode of Arrival: Ambulatory Information source: Patient Notes: 40-year-old male presented to ED for complaint of global headache with a blood pressure of 228/132. He states the headache comes and goes. He was on losartan has been off for about a month. Patient states he does not have any insurance and so is not been able to go to the doctor to get the losartan. Patient is alert oriented respirations regular nonlabored at this time. Lungs are clear. I have greeted and performed a rapid initial assessment of this patient. A comprehensive ED assessment and evaluation of the patient, analysis of test results and completion of medical decision making process will be conducted by an additional ED providers. TRAVEL OUTSIDE OF THE [place] IN LAST 30 DAYS: No - Related Data Allergies/Adverse Reactions: meperidine HCl [From Demerol] Allergy (Verified 09/28/20 12:45) yellow jackets Allergy (Uncoded 09/28/20 12:45) Past Medical History - Past Medical History Cardiac Medical History: Reports: Hx Hypertension - no meds Pulmonary Medical History: Reports: Hx Asthma - as a child Renal/ Medical History: Denies: Hx Peritoneal Dialysis Skin Medical History: Reports Hx Eczema Past Surgical History: Reports: Hx Oral Surgery - Immunizations Immunizations up to date: Yes Hx Diphtheria, Pertussis, Tetanus Vaccination: Yes Physical Exam - Vital signs Vitals: Temp Pulse Resp BP Pulse Ox 99.1 F 85 16 222/134 H 100 09/28/20 11:41 09/28/20 11:41 09/28/20 11:41 09/28/20 11:41 09/28/20 11:41 Course - Vital Signs Vital signs: Temp Pulse Resp BP Pulse Ox 99.1 F 85 16 222/134 H 100 09/28/20 11:41 09/28/20 11:41 09/28/20 11:41 09/28/20 11:41 09/28/20 11:41
--- NOTE | 2020-09-28 13:39 | RADIOLOGY REPORT (SQ) ---
EXAM DESCRIPTION: CT HEAD WITHOUT IMAGES COMPLETED DATE/TIME: 09/28/2020 1:31 pm REASON FOR STUDY: Global headache blood pressure 228/132 COMPARISON: None. TECHNIQUE: Axial images acquired through the brain without intravenous contrast. Images reviewed wi th bone, brain and subdural windows. Additional sagittal and coronal reconstructions were generated. Images stored on PACS. All CT scanners at this facility use dose modulation, iterative reconstruction, and/or weight based d osing when appropriate to reduce radiation dose to as low as reasonably achievable (ALARA). [facility]: Dose Right [facility]: CareDose [facility]: Dose Right [facility]: Teradose 4D [facility]: Smart Mozy RADIATION DOSE: CT Rad equipment meets quality standard of care and radiation dose reduction techniq ues were employed. CTDIvol: 53.2 mGy. DLP: 1070 mGy-cm. mGy. LIMITATIONS: None. FINDINGS: VENTRICLES: Normal size and contour. CEREBRUM: No masses. No hemorrhage. No midline shift. No evidence for acute infarction. Normal gra y/white matter differentiation. No areas of low density in the white matter. CEREBELLUM: No masses. No hemorrhage. No alteration of density. No evidence for acute infarction. EXTRAAXIAL SPACES: No fluid collections. No masses. ORBITS AND GLOBE: No intra- or extraconal masses. Normal contour of globe without masses. CALVARIUM: No fracture. PARANASAL SINUSES: Significant mucoperiosteal thickening in the left maxillary sinus. SOFT TISSUES: No mass or hematoma. OTHER: No other significant finding. IMPRESSION: Left maxillary sinus disease with no acute intracranial imaging finding. EVIDENCE OF ACUTE STROKE: NO. COMMENT: Quality ID # [id number]: Final reports with documentation of one or more dose reduction techniques (e.g., Automated exposure control, adjustment of the mA and/or kV according to patient size, use of iterative reconstruction technique) TECHNICAL DOCUMENTATION: JOB ID: [id number] 2010 [employer]- All Rights Reserved Reading location - IP/workstation name: [email or web address]
[2020-09-28 14:12] LABS: ABSOLUTE EOSINOPHILS # (AUTO) 0.1 10^3/uL (0.0-0.6); ABSOLUTE LYMPHOCYTES (AUTO) 1.6 10^3/uL (0.5-4.7); ABSOLUTE MONOCYTES (AUTO) 0.3 10^3/uL (0.1-1.4); ABSOLUTE NEUT (AUTO) 5.7 10^3/uL (1.7-8.2); BASOPHILS % (AUTO) 0.1 % (0-2); EOSINOPHILS % (AUTO) 1.6 % (0-6); HEMATOCRIT 41.3 % (37.9-51.0); LYMPHOCYTES % (AUTO) 20.4 % (13-45); MEAN CORPUSCULAR HEMOGLOBIN 31.1 pg (27.0-33.4); MEAN CORPUSCULAR HGB CONC 33.9 g/dL (32.0-36.0); MEAN CORPUSCULAR VOLUME 92 fl (80-97); MONOCYTES % (AUTO) 3.9 % (3-13); PLATELET COUNT 202 10^3/uL (150-450); RED BLOOD COUNT 4.49 10^6/uL (4.35-5.55); RED CELL DISTRIBUTION WIDTH 13.8 % (11.5-14.0); TOTAL CELLS COUNTED % (AUTO) 100 %; WHITE BLOOD COUNT 7.7 10^3/uL (4.0-10.5)
[2020-09-28 14:40] LABS: ALBUMIN 4.3 g/dL (3.5-5.0); ALKALINE PHOSPHATASE 77 U/L (38-126); ANION GAP 10 (5-19); ASPARTATE AMINO TRANSFERASE 28 U/L (17-59); BILIRUBIN,TOTAL 0.5 mg/dL (0.2-1.3); BLOOD UREA NITROGEN 16 mg/dL (7-20); CALCIUM 9.5 mg/dL (8.4-10.2); CARBON DIOXIDE 30 mmol/L (22-30); CHLORIDE 98 mmol/L (98-107); CREATINE KINASE 101 U/L (55-170); GLUCOSE 182 mg/dL (75-110); POTASSIUM 3.7 mmol/L (3.6-5.0); TOTAL PROTEIN 7.2 g/dL (6.3-8.2)
[2020-09-28] MEDS ORDERED: CLONIDINE HCL 0.2 MG TABLET PO ONE (15:13)
[2020-09-28] MEDS ORDERED: ACETAMINOPHEN 325 MG TABLET PO ONE (15:18)
--- NOTE | 2020-09-28 15:18 | ER Document Report ---
ED Blood Pressure Problem - General Chief Complaint: High Blood Pressure Stated Complaint: BLOOD PRESSURE ISSUES Time Seen by Provider: 09/28/20 12:48 Mode of Arrival: Ambulatory Information source: Patient Notes: Patient is a 40-year-old male comes emergency room planing of a major headache. Patient states that he has been on losartan blood pressure medication but stopped it approximately a month and a half ago because he does not have a physician and states he does not have insurance so he does not have to wait to get any. He started with headaches approximately 4 days ago got worse yesterday and today when he woke up it was pounding. He does not have a history of any chronic headaches in the past. He does state he found out he had blood pressure problems when he had an injury to his hand and the ER physician found him to be in the high 40s on the losartan. He states that he did not follow his blood pressures but did take the medication he does not remember whether he felt better or worse by taking the medicine time. Patient denies any neurological deficits he is only having a difficult time because of a throbbing. He denies any other medical problems. He denies any family history of hypertension or diabetes. He does admit to smoking. Patient works as an education technician. TRAVEL OUTSIDE OF THE [place] IN LAST 30 DAYS: No - HPI Patient complains to provider of: High blood pressure Onset: Last week Onset/Duration: Gradual, Worse Quality of pain: Sharp, Throbbing Severity: Severe Pain Level: 4 Problem is: New problem Pt currently taking medication for problem: No Associated symptoms: Headache. denies: Blurred vision, Chest pain, Dizziness, Lightheaded, Nausea Similar symptoms previously: No Recently seen / treated by doctor: No - Related Data Allergies/Adverse Reactions: meperidine HCl [From Demerol] Allergy (Verified 09/28/20 12:45) yellow jackets Allergy (Uncoded 09/28/20 12:45) Past Medical History - General Information source: Patient - Social History Smoking Status: Current Every Day Smoker Cigarette use (# per day): Yes - Half pack a day Chew tobacco use (# tins/day): No Smoking Education Provided: Yes Frequency of alcohol use: None Drug Abuse: None Lives with: Family Family History: Reviewed & Not Pertinent - Past Medical History Cardiac Medical History: Reports: Hx Hypertension - no meds Pulmonary Medical History: Reports: Hx Asthma - as a child Renal/ Medical History: Denies: Hx Peritoneal Dialysis Skin Medical History: Reports Hx Eczema Past Surgical History: Reports: Hx Oral Surgery - Immunizations Immunizations up to date: Yes Hx Diphtheria, Pertussis, Tetanus Vaccination: Yes Review of Systems - Review of Systems Constitutional: No symptoms reported EENT: No symptoms reported Cardiovascular: No symptoms reported Respiratory: No symptoms reported Gastrointestinal: No symptoms reported Genitourinary: No symptoms reported Male Genitourinary: No symptoms reported Musculoskeletal: No symptoms reported Skin: No symptoms reported Hematologic/Lymphatic: No symptoms reported Neurological/Psychological: Headaches Physical Exam - Vital signs Vitals: Temp Pulse Resp BP Pulse Ox 99.1 F 85 16 222/134 H 100 09/28/20 11:41 09/28/20 11:41 09/28/20 11:41 09/28/20 11:41 09/28/20 11:41 Interpretation: Hypertensive - Notes Notes: PHYSICAL EXAMINATION: GENERAL: Patient is a well-nourished well-developed 40-year-old male no apparent distress on examination but appears uncomfortable. HEAD: Atraumatic, normocephalic. EYES: Pupils equal round and reactive to light, extraocular movements intact, sclera anicteric, conjunctiva are normal. ENT: Nares patent, oropharynx clear without exudates. Moist mucous membranes. NECK: Normal range of motion, supple without lymphadenopathy LUNGS: Breath sounds clear to auscultation bilaterally and equal. No wheezes rales or rhonchi. HEART: Regular rate and rhythm without murmurs ABDOMEN: Soft, nontender, nondistended abdomen. No guarding, no rebound. No masses appreciated. Musculoskeletal: Normal range of motion, no pitting or edema. No cyanosis. NEUROLOGICAL: Cranial nerves grossly intact. Normal speech, normal gait. Normal sensory, motor exams NIH score of 0 noted PSYCH: Normal mood, normal affect. SKIN: Warm, Dry, normal turgor, no rashes or lesions noted. Course - Re-evaluation Re-evalutation: 09/28/20 17:25 I put the patient proximally 4 hours into his stay here in the emergency room. His CT was negative his lab work looked okay with exception of an elevated glucose of 186. I talked to the patient and wanted to place an IV and he refused. Patient states he does not want to have a needle stuck in them. I explained to him at that time the oral medication to bring his blood pressure down takes time and occasionally the first medication does not work and it takes at least an hour for medication to start working to bring pressure down orally. Patient agreed to this. I gave patient 0.2 mg of clonidine which did nothing for his blood pressure after an hour and a half. Patient called to the nurse demanding to go home. I went back in and explained to patient with a blood pressure of 234/125 that there is limited things I can do with without the use of an IV. I explained to him he is at stroke level. And that I would wish he would allow me the opportunity to work his blood pressure down by IV medications and then sending home with orals. Patient is reluctant but has agreed to allow me to try IV medication. At this time will give him 5 Lopressor IV we will monitor this for 15 to 20 minutes and if that does not work we will reevaluate another medication. 09/28/20 19:57 Which the patient is dose of Lopressor started to bring it down 197/125. But then started to climb again. After about 15 to 20 minutes I will reorder the Lopressor along with hydralazine 10. Again patient did not respond this time to it his blood pressure went up diastolically 243 with a systolic over 200. I went back into talk to patient patient is highly upset and told the nurse that he wants to leave AMA. I went in and had a discussion with Dr. Ohara and she went in and talk to the patient as well patient states that he does not want any further treatment and is going to leave AMA. Dr. Ryan stated that we could write him for some losartan which did not be the treatment we gave him here she attempted to talking to coming into the hospital which had been on our table before and I talked him about it which he was not very thrilled with. And he also refused it with Dr. Ohara. So prior to me getting back into the room patient had his IV taken out and refused to sign AMA. Appears told the nurse to F off and walked out the door. - Vital Signs Vital signs: Temp Pulse Resp BP Pulse Ox 99.1 F 85 16 228/132 H 100 09/28/20 11:41 09/28/20 11:41 09/28/20 11:41 09/28/20 12:53 09/28/20 11:41 09/28/20 20:01 Previously had also talked to patient about that hypertension is manageable in most people however it does take medications like a recipe in order to work for certain people. I told him that he may need more than one medication in order to control the blood pressure. I have informed him that running blood pressures this high your brain becomes accustomed to it and when we start to give your blood pressure medication to lower it you may feel worse on medication for the first 10 days to 2 weeks because your brain has to adjust to lower pressures. I felt that connected with patient on this matter however he refuses to stay and to be admitted even though he does know that he has the potential to have a stroke. - Laboratory Result Diagrams: 09/28/20 13:50 09/28/20 13:50 Laboratory results interpreted by me: 09/28/20 09/28/20 13:50 14:00 Glucose 182 H Urine Protein 30 H Urine Glucose (UA) 50 H Urine Blood MODERATE H Discharge - Discharge Clinical Impression: Hypertension Qualifiers: Hypertension type: unspecified Qualified Code(s): I10 - Essential (primary) hypertension Headache Qualifiers: Headache type: unspecified Headache chronicity pattern: acute headache Intractability: intractable Qualified Code(s): R51.9 - Headache, unspecified Disposition: AGAINST MEDICAL ADVICE
[2020-09-28 15:24] LABS: APPEARANCE,URINE CLEAR; BILIRUBIN,URINE NEGATIVE (NEGATIVE); COLOR,URINE YELLOW; GLUCOSE, URINE 50 mg/dL (NEGATIVE); KETONES,URINE NEGATIVE (NEGATIVE); LEUKOCYTE ESTERASE,URINE NEGATIVE (NEGATIVE); NITRITE,URINE NEGATIVE (NEGATIVE); PROTEIN,URINE 30 mg/dL (NEGATIVE); URINE SPECIFIC GRAVITY 1.021; UROBILINOGEN,URINE NEGATIVE mg/dL (<2.0)
[2020-09-28] MEDS ORDERED: METOPROLOL TARTRATE PF/INJ 5 MG/5 ML SDV IV ONE ×2 (17:41→18:33)
[2020-09-28] MEDS ORDERED: HYDRALAZINE HCL INJ/PF 20 MG/1 ML SDV IV ONE (18:33)
[2020-09-28 19:59] VITALS: BP 205/143
--- NOTE | 2020-09-29 00:35 | EKG REPORT ---
SEVERITY:- ABNORMAL ECG - SINUS RHYTHM LVH WITH SECONDARY REPOLARIZATION ABNORMALITY ANTERIOR Q WAVES, POSSIBLY DUE TO LVH : Confirmed by: Salvador Shields 29-Sep-2020 00:34:59
== END 2020-09-28 19:59 | disposition left against medical advice (07) ==
LOC: ER 11:36
DX: I10 Essential (primary) hypertension (principal); R51.9 Headache, unspecified; F17.210 Nicotine dependence, cigarettes, uncomplicated; Z88.6 Allergy status to analgesic agent; Z88.5 Allergy status to narcotic agent; Z91.038 Other insect allergy status; Z53.20 Procedure and treatment not carried out because of patient's decision for unspecified reasons
CPT/HCPCS: 93005; 99285; 96374; 96375; 36415; 82550; 85025; 80053; 81001; 70450; 93010; J0360; J3490